=== PATIENT | male | born 1975 | race Caucasian/White ===

== ENCOUNTER 2019-05-27 09:41 | Emergency (ER) | payer OTHER, SELFPAY ==
[2019-05-27] VITALS (7 sets, daily range): BP systolic 127–148; BP diastolic 83–104; PULSE 76–88; RESP 16–19; TEMP 36.4; O2SAT 99
--- NOTE | ~2019-05-27 | CT_ITS ---
EXAMINATION: CT brain wo con EXAM DATE: 05/27/2019 13:17 INDICATION: Generalized weakness. TECHNIQUE: Spiral CT of the head was performed without contrast. Axial, coronal and sagittal images were reviewed. The dose-length product (DLP) for this examination was 605.33 mGy-cm. The exposure w as tailored according to patient size, and iterative reconstruction (ASIR) was used as additional dos e reduction technique. There is no prior study for comparison. FINDINGS: There is no acute intraparenchymal hemorrhage. No evidence of intraparenchymal brain mass lesion. No evidence of acute infarction. There is no mass effect or midline shift. The ventricles are normal in size. There are no extra-axial collections. There are no acute calvarial fractures. T he orbits are unremarkable. Soft tissue is unremarkable. The visualized sinuses and mastoid air molina ls are well aerated. IMPRESSION: Unremarkable head CT examination. Reviewed, dictated and finalized at location B. STICS SUPERVISOR
--- NOTE | ~2019-05-27 | XR_ITS ---
EXAMINATION: XR chest 1V EXAM DATE: 05/27/2019 13:23 INDICATION: Dizziness. Numbness in legs and face, paresthesia. TECHNIQUE: Portable AP frontal chest x-ray was obtained. There is no prior study for comparison. FINDINGS: The lungs are clear. There are no pleural effusions. Cardiac silhouette is prominent but magnified on this AP technique. There is no pneumothorax suspected. The bones and soft tissues are unremarkable. IMPRESSION: No acute cardiopulmonary findings. Reviewed, dictated and finalized at location B. IPLE COIL WINDER
[2019-05-27 09:51] LABS: Glucose Point of Care 100 (65-105)
--- NOTE | 2019-05-27 12:13 | ECG_ITS ---
Measurements Intervals [place] Rate: 74 P: 29 SD: 142 QRS: 6 QRSD: 86 T: 39 QT: 366 QTc: 407 Interpretive Statements SINUS RHYTHM NORMAL ECG Electronically Signed On 05-27-2019 14:35:24 QUALITY ASSURANCE ADVISOR by Thomas Anderson D.O.
--- NOTE | 2019-05-27 12:49 | ED.DIZZY ---
HPI - Dizziness General Chief Complaint: Dizziness Stated Complaint: DIZZINESS Time Seen by Provider: 05/27/19 12:47 Source: patient and RN notes reviewed Mode of arrival: ambulatory Limitations: no limitations History of Present Illness HPI Narrative: Pt is a 43 y/o male who presents to the ED with c/o dizziness starting this afternoon. He notes that he suddenly became lightheaded while at work this afternoon, stating that he felt as though he may pass out. Pt also reports facial numbness and upper back pain, but denies any CP or SOB. He notes that he feels as though his legs are more swollen, stating that his shoes and socks feel tighter than normal. Pt notes that he had a similar episode previously while in [place]. MD elicited complaint: dizziness Timing: sudden onset Description: lightheadedness History of similar symptoms: Yes Associated symptoms: other (upper back pain; BLE edema) Associated neuro symptoms: facial numbness Related Data Allergies Allergy/AdvReac Type Severity Reaction Status Date / Time No Known Allergies Allergy Unverified 05/14/12 08:23 Review of Systems Review of Systems: All systems reviewed & are unremarkable except as noted in HPI and below Cardiovascular: Cardiovascular: Denies chest pain and Reports leg edema (BLE edema) Respiratory: Respiratory: Denies dyspnea Musculoskeletal: Musculoskeletal: Reports back pain (upper back pain) Neurologic: Reports dizziness and Reports numbness (facial numbness) [facility] Past Medical History Medical History HTN (hypertension) Surgical History Surgical History No significant past surgical history Family History Family History (Updated 07/18/18 @ 10:03 by DOCTOR UNKNOWN) Father Family history of throat cancer Social History Social History Smoking status: Never smoker Alcohol intake: current Gender identity (if verbalized by the patient): Male Exam Narrative: Exam Narrative: APPEARANCE: No acute distress, nontoxic, resting in bed HEENT: Normocephalic, atraumatic, OMM, TMs clear bilaterally EYES: PERRL, EOMI NECK: Supple, nontender, full range of motion without pain, no meningismus RESPIRATORY: No respiratory distress, clear to auscultation bilaterally with no rhonchi wheezing or rales CARDIOVASCULAR: RRR s murmur ABDOMINAL: Soft, nontender, nondistended MUSCULOSKELETAL: Moves all extremities. No clubbing, cyanosis or edema. NEURO: A and O ?3, following commands, speech normal, cranial nerves II through XII grossly intact,muscle strength 5 out of 5 bilateral upper and lower extremities, patient has equal sensation in the bilateral face SKIN:: Warm, dry. Normal Color PSYCHIATRIC: Normal affect/mood Course Course Emergency Course: Patient does state he has a history of anxiety. States he was on Ativan before in the past but did not take it does not like how it made him feel Discussed with Dr. James's CANINE DEPUTY. Discussed patient's blood pressure. At this time recommends the patient call the office and will follow-up in the next 1 to 2 days for further treatment and evaluation Patient states he is feeling better this time. Dizziness is resolved. Patient able to get up and ambulate with no difficulty Discussed with patient results of workup and diagnosis. Discussed need for follow-up with primary care, proper use of medication, and reasons to return to the emergency department. Patient understands and agrees to current treatment plan Vital Signs Vital signs: Vital Signs Temperature 97.6 F 05/27/19 09:53 Pulse Rate 88 05/27/19 09:53 Respiratory Rate 18 05/27/19 09:53 Blood Pressure 148/99 H 05/27/19 09:53 Pulse Oximetry 99 05/27/19 09:53 Temperature 97.6 F 05/27/19 09:53 Pulse Rate 81 05/27/19 15:25 Respiratory Rate 18 05/27/19 09:53 Blood Pressure 140/104 H 05/27/19
[2019-05-27 13:24] LABS: Basophils Percent Auto 0.5 % (0.2-1.2); Eosinophils Absolute Auto 0.2 K/mm3 (0-0.3); Eosinophils Percent Auto 2.3 % (0-4.4); Hematocrit 53.3 % (42.0-52.0); Hemoglobin 17.2 g/dL (14.0-18.0); Immature Granulocyte Absolute 0.03 K/mm3 (0.00-0.031); Immature Granulocyte Percent A 0.4 % (0-0.5); Lymphocytes Absolute Auto 2.01 K/mm3 (0.9-3.2); Lymphocytes Percent Auto 26.6 % (18.3-44.2); Mean Corpuscular HGB Conc 32.3 g/dl (32-36); Mean Corpuscular Hemoglobin 29.4 pg (26-34); Mean Platelet Volume 9.4 fl (7.4-10.4); Monocytes Absolute Auto 0.7 K/mm3 (0.1-0.6); Monocytes Percent Auto 9.4 % (2.6-8.5); Neutrophils Absolute Auto 4.6 K/mm3 (1.3-6.7); Neutrophils Percent Auto 60.8 % (45.5-73.1); Platelet Count Result 256 k/mm3 (150-375); Red Blood Count 5.86 M/mm3 (4.6-6.20); Red Cell Distribution Width 12.6 % (11.5-14.5); White Blood Count 7.6 K/mm3 (4.5-10.0)
[2019-05-27 13:32] LABS: Alanine Aminotransferase 52 U/L (4-50); Albumin Level 4.7 g/dL (3.5-5.1); Alkaline Phosphatase 105 U/L (38-126); Aspartate Amino Transferase 38 U/L (17-59); Bilirubin,Total 0.6 mg/dL (0.2-1.3); Blood Urea Nitrogen 16 mg/dL (9-20); Calcium 9.5 mg/dL (8.4-10.2); Carbon Dioxide 34 mmol/L (22-30); Chloride 96 mmol/L (98-107); Estimated CRCL calculation 125 ml/min; Estimated Glomerular Filt Rate > 60; Glucose 84 mg/dL (75-110); Potassium 3.8 mmol/L (3.4-5.0); Sodium 139 mmol/L (137-145)
[2019-05-27] MEDS: LACTATED RINGERS 1,000 ML 999 ML IV CONT (13:43)
[2019-05-27 13:47] LABS: Troponin I < 0.012 ng/mL (0.000-0.034)
[2019-05-27 13:58] LABS: D Dimer 0.38 ug/mL (<0.48)
[2019-05-27 15:33] LABS: Add Urine Microscopic? NO; Appearance Urine Clear (Clear); Bilirubin Urine Negative (Negative); Blood Urine Negative (Negative); Color Urine Yellow (Yellow); Glucose Urine UA Negative (Negative); Ketones Urine Negative (Negative); Leukocyte Esterase Ur Negative LEU/UL (Negative); Nitrate Urine Negative (Negative); Protein Urine Negative (Negative); Specific Grav Ur 1.019 (1.001-1.035); Urobilinogen Urine Negative mg/dL (<2.0)
== END 2019-05-27 16:44 | disposition home or self-care (01) ==
PROVIDERS: Emergency Medicine Emergency Medical Services; Emergency Provider Emergency Medicine; PCP Family Medicine
DX: R42 Dizziness and giddiness (principal); I10 Essential (primary) hypertension
CPT/HCPCS: 36415; 70450; 71045; 80053; 81003; 84484; 85025; 85380; 93005; 96360; 99284; J7120

== ENCOUNTER 2020-02-19 21:03 | Emergency (ER) | payer OTHER, SELFPAY ==
--- NOTE | ~2020-02-19 | CT_ITS ---
EXAMINATION: CT brain wo con DATE: 02/19/2020 21:54 INDICATION: Weakness. TECHNIQUE: Computed tomography (CT) of the head was performed without intravenous contrast. The mA wa s adjusted according to patient size. Iterative reconstruction technique was employed. The dose-lengt h product was 605.33 mGy-cm. COMPARISON: Head CT 05/27/2019 FINDINGS: There is no intracranial hemorrhage, acute infarction, or abnormal intracranial mass lesion . The ventricles are normal in size. There is mild mucosal thickening in the paranasal sinuses. The o rbits are normal. The mastoid air cells are normal. IMPRESSION: 1. Normal brain. Reviewed, dictated and finalized at location A. HEAD CRANE INSPECTOR IMPRESSION: 1. Normal brain.
--- NOTE | ~2020-02-19 | CT_ITS ---
EXAMINATION: CT abdomen pelvis wo con DATE: 02/19/2020 21:54 INDICATION: Right upper quadrant abdominal pain. TECHNIQUE: Computed tomography (CT) of the abdomen and pelvis was performed without intravenous contr ast. Automated exposure control and iterative reconstruction technique were employed. The dose-length product was 1524.92 mGy-cm. COMPARISON: None. FINDINGS: The visualized portions of the lung bases demonstrate mild atelectasis. No pleural effusion . The heart size is normal. No pericardial effusion. There is a small sliding hiatal hernia. The live r, gallbladder, spleen, pancreas, and adrenal glands are normal. There are cysts in the kidneys inclu ding peripelvic cysts measuring up to 3.9 cm on the left. There is no urolithiasis. There are no dila adrián loops of bowel. The appendix is normal. There are no pathologically enlarged lymph nodes. There i s no free intraperitoneal fluid. There is mild thoracolumbar spondylosis. IMPRESSION: 1. Small sliding hiatal hernia. Reviewed, dictated and finalized at location A. PATTERN GRADER
[2020-02-19 21:06] VITALS: BP 163/89; PULSE 93; RESP 18; TEMP 36.2; O2SAT 98
--- NOTE | 2020-02-19 21:38 | ECG_ITS ---
Measurements Intervals [place] Rate: 91 P: 49 MS: 129 QRS: -2 QRSD: 97 T: 48 QT: 349 QTc: 430 Interpretive Statements SINUS RHYTHM BASELINE ARTIFACT- I, III, AVL, V1-V2 BORDERLINE ECG Electronically Signed On 02-20-2020 7:04:17 [employer] HELICOPTER AIRCREWMAN by Thomas Anderson D.O.
[2020-02-19 22:02] VITALS: BP 154/92; PULSE 92; RESP 19; TEMP 36.8; O2SAT 97
--- NOTE | 2020-02-19 22:07 | ED.GENADULT ---
HPI - General Adult General Chief complaint: Anxiety Stated complaint: anxiety Time Seen by Provider: 02/19/20 21:31 Source: patient and family Mode of arrival: ambulatory Limitations: no limitations History of Present Illness HPI narrative: Patient is a 44-year-old male complaining of right upper quadrant pain accompanied by lightheadedness started back in November right after his father unexpectedly. Patient states his lightheadedness is actually better right now is not having any, and his right upper quadrant pain is mild. He denies any nausea vomiting, chest pain, shortness of breath or fever. According to the he thinks he is going to started out as weekly and now he is having it almost every day , states he has been having the impending doom feeling on and off since November when his dad . states that his doctor diagnosed him with anxiety, panic attacks and was recently prescribed BuSpar and hydroxyzine, but states that he does not want to take any psych meds . Patient admits to being anxious almost every day. Patient denies any suicidal or homicidal ideation. Denies any thoughts of injuring himself or others. Patient states that he is actually feeling better now and not as anxious as he was earlier. Related Data Home Medications Medication Instructions Recorded Confirmed amlodipine 10 mg tablet 10 mg PO DAILY 05/29/19 metformin 500 mg tablet 500 mg PO BID 05/29/19 Allergies Allergy/AdvReac Type Severity Reaction Status Date / Time No Known Allergies Allergy Verified 02/19/20 22:10 Review of Systems Review of Systems: All systems reviewed & are unremarkable except as noted in HPI and below Constitutional: Constitutional: Denies body ache(s), Denies chills, Denies excessive sweating, Denies fatigue, Denies fever(s), Denies headache(s), Denies lethargy, Denies malaise, Denies weakness and Denies weight loss Eyes: Eyes: Denies blurry vision, Denies change in vision and Denies loss of vision ENT: Denies dizziness, Denies ear discharge, Denies headache(s), Denies lip swelling, Denies epistaxis, Denies nasal congestion, Denies neck pain, Denies throat swelling and Denies tongue swelling Cardiovascular: Cardiovascular: Denies chest pain, Denies chest pain at rest, Denies chest pain with activity, Denies diaphoresis, Denies rapid heart rate, Denies edema, Denies irregular heart rhythm, Denies lightheadedness, Denies palpitations, Denies dyspnea and Denies dyspnea on exertion Respiratory: Respiratory: Denies chest congestion, Denies cough, Denies hemoptysis, Denies dyspnea and Denies dyspnea on exertion Gastrointestinal: Gastrointestinal: Denies melena, Denies hematochezia, Denies diarrhea, Denies nausea, Denies vomiting and Denies hematemesis Musculoskeletal: Musculoskeletal: Denies abnormal gait, Denies deformity, Denies joint swelling, Denies limited range of motion, Denies neck pain and Denies numbness Neurologic: Denies Abnormal speech present, Denies abnormal gait, Denies confusion, Denies headache(s), Denies focal weakness, Denies loss of vision, Denies numbness, Denies Other visual disturbances, Denies Sensory deficit (Neuro) and Denies weakness Psychiatric: Psychiatric: Denies confusion, Denies depression, Denies auditory hallucinations, Denies homicidal ideation and Denies suicidal ideation Endocrine: Endocrine: Denies cold intolerance, Denies excessive sweating, Denies fatigue, Denies heat intolerance and Denies palpitations Hematologic/Lymphatic: Hematologic/Lymphatic: Denies easy bleeding and Denies easy bruising Allergic/Immunologic: Allergic/Immunologic: Denies lip swelling, Denies throat swelling and Denies tongue swelling PMFSH Past Medical History Medical History (Updated 02/19/20 @ 23:39 by Sergio Hein MD) Benign reactive hypertension History of trigger finger HTN (hypertension) Mixed hyperlipidemia Polycythemia Sleep disorder Surgical History Surgical History (Update
[2020-02-19 22:18] LABS: Basophils Absolute Auto 0.1 K/mm3 (0.0-0.1); Basophils Percent Auto 0.5 % (0.2-1.2); Eosinophils Absolute Auto 0.2 K/mm3 (0-0.3); Eosinophils Percent Auto 1.8 % (0-4.4); Hematocrit 46.7 % (42.0-52.0); Hemoglobin 15.7 g/dL (14.0-18.0); Immature Granulocyte Absolute 0.02 K/mm3 (0.00-0.031); Immature Granulocyte Percent A 0.2 % (0-0.5); Lymphocytes Absolute Auto 1.98 K/mm3 (0.9-3.2); Mean Corpuscular HGB Conc 33.6 g/dl (32-36); Mean Corpuscular Hemoglobin 30.3 pg (26-34); Monocytes Absolute Auto 0.9 K/mm3 (0.1-0.6); Monocytes Percent Auto 8.8 % (2.6-8.5); Neutrophils Absolute Auto 6.8 K/mm3 (1.3-6.7); Neutrophils Percent Auto 68.7 % (45.5-73.1); Platelet Count Result 252 k/mm3 (150-375); Red Blood Count 5.19 M/mm3 (4.6-6.20); Red Cell Distribution Width 12.3 % (11.5-14.5); White Blood Count 9.9 K/mm3 (4.5-10.0)
[2020-02-19 22:32] LABS: Alanine Aminotransferase 32 U/L (4-50); Albumin Level 4.1 g/dL (3.5-5.1); Alkaline Phosphatase 98 U/L (38-126); Anion Gap 7 mmol/L (8-16); Aspartate Amino Transferase 33 U/L (17-59); Bilirubin,Total 0.7 mg/dL (0.2-1.3); Blood Urea Nitrogen 17 mg/dL (9-20); Calcium 9.4 mg/dL (8.4-10.2); Carbon Dioxide 33 mmol/L (22-30); Chloride 98 mmol/L (98-107); Estimated CRCL calculation 125 ml/min; Estimated Glomerular Filt Rate > 60; Glucose 132 mg/dL (75-110); Potassium 3.5 mmol/L (3.4-5.0); Sodium 138 mmol/L (137-145)
[2020-02-19 22:54] LABS: Troponin I < 0.012 ng/mL (0.000-0.034)
[2020-02-20 00:05] VITALS: BP 138/90; PULSE 85; RESP 16; TEMP 36.8; O2SAT 98
== END 2020-02-20 00:06 | disposition home or self-care (01) ==
PROVIDERS: Emergency Provider Emergency Medicine; PCP Family Medicine
DX: R10.11 Right upper quadrant pain (principal); R42 Dizziness and giddiness; F41.9 Anxiety disorder, unspecified; I10 Essential (primary) hypertension; E78.2 Mixed hyperlipidemia; G47.9 Sleep disorder, unspecified; R94.31 Abnormal electrocardiogram [ECG] [EKG]
CPT/HCPCS: 36415; 70450; 74176; 80053; 84484; 85025; 93005; 99284

== ENCOUNTER 2020-02-25 10:11 | Outpatient (CLI) | payer OTHER, SELFPAY ==
--- NOTE | ~2020-02-25 | US_ITS ---
EXAMINATION: US right upper quadrant DATE: 02/25/2020 10:40 INDICATION: Right upper quadrant abdominal pain. TECHNIQUE: Multiple grayscale and Doppler ultrasound images of the abdomen were obtained. COMPARISON: CT abdomen and pelvis 02/19/2020 FINDINGS: The visualized portions of the head, body, and tail of the pancreas are normal. The liver i s normal without focal lesion. No liver surface nodularity. There is normal flow in main portal vein. The gallbladder is normal in size. No gallstones or gallbladder wall thickening. There was no sonogr aphic Weller sign. The common duct is normal and measures 4 mm. IMPRESSION: 1. Normal right upper quadrant ultrasound. Reviewed, dictated and finalized at location B. ER SERVICE SPECIALIST
== END 2020-02-25 10:12 | disposition home or self-care (01) ==
PROVIDERS: PCP Family Medicine; Visit Provider Physician Assistant
DX: R10.11 Right upper quadrant pain (principal); R19.7 Diarrhea, unspecified
CPT/HCPCS: 76705

== ENCOUNTER 2023-07-10 09:20 | Outpatient (CLI) | payer BC, SELFPAY ==
--- NOTE | ~2023-07-10 | XR_ITS ---
XR chest 2V INDICATION: Dyspnea TECHNIQUE: 2 view chest. FINDINGS: Comparison to 05/27/2019 There is mild bilateral interstitial prominence and peribronchial cuffing. There is no focal consoli dation, pleural effusion, or pneumothorax. The cardiomediastinal silhouette is normal. IMPRESSION: 1. Findings most consistent with bronchiolitis versus an atypical or viral pneumonia. Reviewed, dictated and finalized at location B. IMPRESSION: 1. Findings most consistent with bronchiolitis versus an atypical or viral [facility].
== END 2023-07-10 09:21 ==
LOC: MICIMG 09:21
PROVIDERS: PCP Family Medicine; Visit Provider Physician Assistant
DX: R06.00 Dyspnea, unspecified (principal)
CPT/HCPCS: 71046